=== PATIENT | female | born 1990 | race African-American/Black ===

== ENCOUNTER 2018-04-16 04:17 | Emergency (ER) | payer OTHER ==
[~2018-04-16] VITALS: Ht 167.6 cm; Wt 73.2 kg
[2018-04-16] MEDS ORDERED: VALA500T4 PO ×2 (04:47→06:14)
[2018-04-16] MEDS ORDERED: MONI1OIN VA (04:49)
[2018-04-16 05:08] LABS: APPEARANCE, URINE HAZY (CLEAR); BACTERIA, URINE AUTO 1+ (NEGATIVE); BILIRUBIN, URINE AUTO NEGATIVE (NEGATIVE); BLOOD, URINE BLOOD 3+ (NEGATIVE); COLOR, URINE YELLOW (YELLOW); GLUCOSE, URINE (UA) AUTO NEGATIVE (NEGATIVE); KETONE, URINE AUTO NEGATIVE (NEGATIVE); LEUKOCYTE ESTERASE, URINE AUTO TRACE (NEGATIVE); NITRITE, URINE AUTO NEGATIVE (NEGATIVE); PROTEIN, URINE AUTO NEGATIVE (NEGATIVE); RBC, URINE AUTO 42 /HPF (0-3); SPECIFIC GRAVITY URINE AUTO 1.023 (1.002-1.035); SQUAMOUS EPITHELIAL CELL UR AU 1 /HPF (0-6); UROBILINOGEN, URINE AUTO 0.2 mg/dL (0.0-2.0); WBC, URINE AUTO 7 /HPF (0-3)
[2018-04-16] MEDS ORDERED: DIFL150T PO (06:13)
[2018-04-16] MEDS ORDERED: AZITHROMYCIN 250 MG TAB PO ONE (06:15)
[2018-04-16] MEDS ORDERED: cefTRIAXone SOD 500 MG VIAL (J0696) IM ONE (06:15)
[2018-04-16] MEDS ORDERED: LIDOCAINE 1% SDV 5 ML VIAL DILUENT ONE (06:15)
[2018-04-16 06:31] LABS: CHLAMYDIA DNA AMPLIFICATION NEGATIVE (NEGATIVE); GC DNA AMPLIFICATION NEGATIVE (NEGATIVE)
[2018-04-16 06:32] VITALS: BP 120/76
== END 2018-04-16 06:34 | disposition home or self-care (01) ==
LOC: M ED 04:17
DX: N76.0 Acute vaginitis (principal)
CPT/HCPCS: 81001; 87086; 87491; 87591; 96372; 99284; J0696